=== PATIENT | male | born 1945 | race Caucasian/White ===

== ENCOUNTER 2021-08-21 16:15 | Emergency (ER) | payer MEDICARE, OTHER ==
[~2021-08-21] VITALS: Ht 182.9 cm; Wt 91.0 kg
[2021-08-21 16:20] VITALS: BP 159/78
--- NOTE | 2021-08-21 16:39 | PHYS DOC ---
Adult General HPI HPI Patient is a 76-year-old male patient presenting to the ED today with a lesion on the left church for 1 year and another lesion on the right exterior ear for unknown period of time. He states he recently noted the lesion on the right exterior ear was draining. Patient denies any hearing loss. Denies any fever. He states he went today to see a development geologist and the office did not take patients. (TAURUS VARGHESE APRN) Review of Systems Review of Systems Constitutional: Denies fever or chills [] Integument: Lesion on the left church, lesion on the right exterior ear Neurologic: Denies headache, focal weakness or sensory changes [] All other systems were reviewed and found to be within normal limits, except as documented in this note. (TAURUS VARGHESE APRN) Physical Exam Physical Exam Constitutional: Well developed, well nourished, no acute distress, non-toxic appearance. [] HENT: Normocephalic, atraumatic, bilateral external ears normal, oropharynx moist, no oral exudates, nose normal. [] Skin: Left church with an indurated circular lesion approx. 0.5X0.5 cm with no drainage no signs of infection. Right exterior ear with a non indurated area 0.3X0.3 cm with with clear drainage. Back: No tenderness, no CVA tenderness. [] Extremities: No tenderness, no cyanosis, no clubbing, ROM intact, no edema. [] Neurologic: Alert and oriented X 3, normal motor function, normal sensory function, no focal deficits noted. [] Psychologic: Affect normal, judgement normal, mood normal. [] (TAURUS VARGHESE APRN) EKG EKG [] (TAURUS VARGHESE APRN) Radiology/Procedures Radiology/Procedures [] (TAURUS VARGHESE APRN) Heart Score C/O Chest Pain: N/A Risk Factors: Risk Factors: DM, Current or recent (<one month) smoker, HTN, HLP, family history of CAD, obesity. Risk Scores: Risk Factors: DM, Current or recent (<one month) smoker, HTN, HLP, family history of CAD, obesity. (TAURUS VARGHESE APRN) Course & Med Decision Making Course & Med Decision Making Pertinent Labs and Imaging studies reviewed. (See chart for details) This is a 76-year-old male patient presenting to the ED today with 2 lesions on his skin one on the left church and the one on the right exterior ear. The one on the left church he has had that for 1 year, he does not know how long he has had the one on the right exterior ear, lesions suspicious for skin cancer. Provided this patient a development geologist, he will follow-up next week (TAURUS VARGHESE APRN) Dragon Disclaimer Dragon Disclaimer This electronic medical record was generated, in whole or in part, using a voice recognition dictation system. (TAURUS VARGHESE APRN) Attending Co-Sign The patient was seen and interviewed as well as examined at the bedside. The chart was reviewed. The case was discussed. Agree with the plan of care. (TONY MUÑOZ DO) Departure Departure: Impression: Primary Impression: Skin lesion of face Additional Impression: Skin lesion of right ear Disposition: HOME / SELF CARE / HOMELESS Condition: STABLE Referrals: JUNIOR ROLLINS (PCP) Please follow up with the provided development geologist Patient Instructions: Skin Ulcer Additional Instructions: Please follow-up with the provided development geologist as soon as Problem Qualifiers TAURUS VARGHESE APRN Aug 21, 2021 16:39 TONY MUÑOZ DO Aug 21, 2021 17:57
== END 2021-08-21 17:00 | disposition home or self-care (01) ==
LOC: ER 16:15
DX: L98.9 Disorder of the skin and subcutaneous tissue, unspecified (principal); H93.91 Unspecified disorder of right ear
CPT/HCPCS: 99281-25

== ENCOUNTER 2021-09-19 17:47 | Emergency (ER) | payer MEDICARE, OTHER ==
[~2021-09-19] VITALS: Ht 182.9 cm; Wt 91.0 kg
[2021-09-19 18:02] VITALS: BP 171/78
[2021-09-19] MEDS ORDERED: DIPHTH,PERTUSS(ACELL),TET TOX 0.5 ML DISP.SYRIN. VAX IM ONE ×2 (18:34→18:45)
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
[2021-09-19] MEDS ORDERED: LIDOCAINE/EPI/TETRACAINE TOPICAL GEL 3 ML. TP ONE (18:45)
[2021-09-19] MEDS ORDERED: oxyCODONE/APAP 5/325 1 TAB TABLET PO ONE (18:45)
== END 2021-09-19 19:00 | disposition home or self-care (01) ==
LOC: ER 17:47
DX: H93.8X1 Other specified disorders of right ear (principal); H95.41 Postprocedural hemorrhage of ear and mastoid process following a procedure on the ear and mastoid process; Z91.013 Allergy to seafood; Z88.8 Allergy status to other drugs, medicaments and biological substances
CPT/HCPCS: 90471; 90715; 99283